=== PATIENT | male | born 1985 | race American Indian/Alaskan Native ===

== ENCOUNTER 2021-06-14 18:42 | Inpatient (IN) | payer SELFPAY ==
[2021-06-14] MEDS ORDERED: Ondansetron 4 MG/2 ML SDV IV PRN (19:01)
[2021-06-14] MEDS ORDERED: Sodium Chloride 0.9% 10 ML Syringe FLUSH PRN (19:01)
[2021-06-14] MEDS ORDERED: Polyethylene Glycol 3350 Powder 17 GM Packet PO PRN (19:01)
--- NOTE | 2021-06-14 19:07 | PCM.HP.2 ---
H&P History of Present Illness - General Date of Service: 06/14/21 Admit Problem/Dx: Admission Diagnosis/Problem Admission Diagnosis/Problem Cellulitis Source of Information: Patient, Provider History Limitations: Reports: No Limitations - History of Present Illness Initial Comments - Free Text/Narative: Mr. Barbosa is a 35-year-old gentleman who was admitted as a direct admission from the hospital emergency department in [place], for management of cellulitis and positive blood cultures. He injured the dorsal aspect of his left hand last week. Within a few days noted erythema and swelling of the dorsal aspect of his hand and forearm. He was seen and evaluated in the [place] emergency department yesterday. Blood cultures were obtained and he was given a dose of IV vancomycin. 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 No beds were available for transfer for hospitalization so he was discharged home and instructed to return back to the emergency department this morning. By that time blood cultures were positive, growing gram-positive cocci. He was given another dose of vancomycin and transferred here for further hospitalization and management. He has experienced fever and chills, appetite is diminished. - Related Data Allergies/Adverse Reactions: Allergies Allergy/AdvReac Type Severity Reaction Status Date / Time bee venom protein (honey bee) Allergy Cannot Verified 06/14/21 19:12 Remember sulfamethoxazole Allergy Cannot Verified 06/14/21 19:12 [From Bactrim] Remember trimethoprim [From Bactrim] Allergy Cannot Verified 06/14/21 19:12 Remember Home Medications: Home Meds Ibuprofen 600 mg PO Q6H PRN 06/14/21 [History] H&P Review of Systems - Review of Systems: Review Of Systems: See Below General: Reports: Fever, Chills, Malaise, Weakness, Decreased Appetite HEENT: Reports: No Symptoms Pulmonary: Reports: No Symptoms Cardiovascular: Reports: No Symptoms Gastrointestinal: Reports: No Symptoms Genitourinary: Reports: No Symptoms Musculoskeletal: Reports: No Symptoms Skin: Reports: Erythema (Erythema and induration of the dorsal aspect left hand and forearm) Psychiatric: Reports: No Symptoms Neurological: Reports: No Symptoms Hematologic/Lymphatic: Reports: No Symptoms Immunologic: Reports: No Symptoms Exam - Exam Exam: See Below - Exam General: Alert, Oriented, Cooperative, Mild Distress HEENT: Conjunctiva Clear, Hearing Intact, Mucosa Moist & [place], Normal Nasal Septum, Posterior Pharynx Clear, Pupils Equal Neck: Supple, Trachea Midline Lungs: Clear to Auscultation, Normal Respiratory Effort Cardiovascular: Regular Rate, Regular Rhythm, Normal S1, Normal S2. No: Systolic Murmur, Diastolic Murmur GI/Abdominal Exam: Soft, Non-Tender, No Organomegaly, No Distention Extremities: Non-Tender, No Pedal Edema Skin: Other (Erythema and induration left dorsal hand and forearm) Neurological: Cranial Nerves Intact, Strength Equal Bilateral, Normal Speech, Normal Tone, Sensation Intact. No: Focal Deficit Neuro Extensive - Mental Status: Alert, Oriented x3, Normal Mood/Affect, Normal Cognition, Memory Intact *Q Meaningful Use (ADM) - VTE *Q VTE Mechanical Contraindications *Q: Further Opinion Sought VTE Pharmacological Contraindications *Q: Not Candidate LT Anticoag - VTE Risk Assess *Q Each Risk Factor Represents 1 Point: Obesity ( BMI > 25 kg/m2) Total Score 1 Point Risk Factors: 1 Each Risk Factor Represents 2 Points: None Total Score 2 Point Risk Factors: 0 Each Risk Factor Represents 3 Points: None Total Score 3 Point Risk Factors: 0 Each Risk Factor Represents 5 Points: None Total Score 5 Point Risk Factors: 0 Venous Thromboembolism Risk Factor Score *Q: 1 Problem List Initiated/Reviewed/Updated: Yes Orders Last 24hrs: Active Orders 24 hr Category Date Time Status Patient Status [ADT] Routine ADT 06/14/21 19:01 Ordered Ambulate [RC] QID Care 06/14/21 19:01 Ordered Height and Weight [RC] DAILY Care 06/14/21 19:01 Ordered Intake and Output [RC] QSHIFT Care 06/14/21 19:01 Ordered Notify Provider Vital Signs [RC] ASDIRECTED Care 06/14/21 19:01 Ordered Oxygen Therapy [RC] PRN Care 06/14/21 19:01 Ordered Up to Chair [RC] QID Care 06/14/21 19:01 Ordered VTE/DVT Education [RC] Per Unit Routine Care 06/14/21 19:01 Ordered Vital Signs [RC] Q4H Care 06/14/21 19:01 Ordered Regular Diet [DIET] Diet 06/14/21 Dinner Ordered BASIC METABOLIC PANEL,BMP [CHEM] AM Lab 06/15/21 05:11 Ordered CBC WITH AUTO DIFF [HEME] AM Lab 06/15/21 05:11 Ordered CULTURE BLOOD [BC] AM Lab 06/15/21 05:11 Ordered CULTURE BLOOD [BC] AM Lab 06/15/21 05:11 Ordered Acetaminophen [TylenoL] Med 06/14/21 19:01 Ordered 650 mg PO Q4H PRN Ondansetron [Zofran] Med 06/14/21 19:01 Ordered 4 mg IV Q4H PRN Sodium Chloride 0.9% [Saline Flush] Med 06/14/21 19:01 Ordered 10 ml FLUSH ASDIRECTED PRN Vancomycin Med 06/14/21 20:00 Ordered 1 gm IV .PHARMACY TO DOSE polyethylene glycoL 3350 [MiraLAX] Med 06/14/21 19:01 Ordered 17 gm PO DAILY PRN Blood Culture x2 Reflex Set [OM.PC] AM Oth 06/15/21 05:11 Ordered Saline Lock Insert [OM.PC] Routine Oth 06/14/21 19:01 Ordered VTE Mechanical Contraindications [AST] Per Unit Routine Oth 06/14/21 19:01 Ordered VTE Pharmacological Contraindications [AST] Per Unit Oth 06/14/21 19:01 Ordered Routine Resuscitation Status Routine Resus Stat 06/14/21 19:01 Ordered Assessment/Plan Comment:: ASSESSMENT AND PLAN CELLULITIS DORSAL ASPECT LEFT HAND AND FOREARM-he experienced a skin break lesion on the dorsal aspect of his hand while working on a car last week. Within a few days developed significant erythema and swelling involving the dorsal aspect of the hand and extending into the forearm. Seen and evaluated yesterday at the [place] emergency department and started on vancomycin. He has a history of previous MRSA infection. Today blood cultures were found to be positive for gram-positive cocci, final ID and sensitivities are pending. He received his second dose of IV vancomycin this morning at the [place] emergency department. Transferred here for further evaluation and management. -Saline lock IV -IV vancomycin, pharmacy to dose -Follow-up blood cultures from [place] -Repeat blood cultures in a.m. -MRI of the left hand and forearm in a.m. MAINTENANCE ISSUES -DVT prophylaxis; not required -GI prophylaxis; not indicated -King catheter; not indicated -Nutrition; regular diet -Nicotine dependence; not required CODE STATUS-FULL CODE ADMISSION STATUS-patient will be admitted to inpatient status, expect at least a 2 night hospital stay for evaluation and management of problems as outlined above. At the time of this admission I do not reasonably expected evaluation and management of this problem will require more than a 96 hour hospital stay. DISPOSITION-anticipate discharge to home after the hospital stay. PRIMARY CARE PROVIDER-he receives primary care at the [facility] - Mortality Measure Prognosis:: Good
[2021-06-14] MEDS: Acetaminophen 325 MG Tab PO PRN (19:21)
[2021-06-14] MEDS ORDERED: Vancomycin 1 GM SDV IV SCH (20:00)
[2021-06-14] MEDS ORDERED: Vancomycin 2 GM in Sodium Chloride 0.9% 500 ML IV SCH (20:00)
[2021-06-14] MEDS: traMADol 50 MG Tab PO PRN (23:44)
[2021-06-15] MEDS: traMADol 50 MG Tab PO PRN ×3 (05:51→20:17)
[2021-06-15] MEDS: Acetaminophen 325 MG Tab PO PRN ×3 (05:54→20:17)
[2021-06-15] MEDS ORDERED: Vancomycin 2 GM in Sodium Chloride 0.9% 500 ML IV SCH ×2 (09:00→21:00)
[2021-06-15] MEDS ORDERED: Gadoteridol 279.3 MG/ML 20 ML SDV IV SCH (10:00)
[2021-06-15] MEDS ORDERED: Potassium Chloride 20 MEQ Tab.ER PO ONE (10:00)
--- NOTE | 2021-06-15 10:48 | CRLMR ---
For Patients: As a result of the Cures Act, medical imaging exams and procedure reports are released immediately into your electronic medical record. You may view this report before your referring provider. If you have questions, please contact your health care provider. HISTORY: Cellulitis of the left wrist. Swelling and redness. TECHNIQUE: Noncontrast and contrast enhanced MRI of the left wrist. COMPARISON: No prior. FINDINGS: Soft tissues: There is dorsal soft tissue signal abnormality and enhancement involving the wrist compatible with cellulitis. There is no peripherally enhancing dorsal subcutaneous fluid collection to suggest a well-formed abscess. No soft tissue mass. - Tendons: No excessive tendon sheath fluid to suggest tenosynovitis. No tendon tear or significant tendinosis. - Joint spaces: No abnormal joint effusions. No erosive change. No evidence of septic arthritis. - Osseous structures: No osteomyelitis. No fracture. Ulnar minus variance is noted. IMPRESSION: 1. Dorsal wrist cellulitis. 2. No peripherally enhancing fluid collection to suggest a well-formed abscess. 3. No septic arthritis or osteomyelitis. 4. No abnormal tendon sheath fluid to suggest tenosynovitis. Dictated by Jonnathan William MD @ 06/15/2021 10:46:24 AM Dictated by: Jonnathan William MD @ 06/15/2021 10:46:28 (Electronically Signed)
--- NOTE | 2021-06-15 14:16 | PCM.PN ---
- General Info Date of Service: 06/15/21 Subjective Update: No acute events overnight. Patient reports a large improvement in pain and swelling of the left wrist and forearm area. He did have a fever last night but none this morning. He is able to bend his wrist a little bit today. Appetite is good. MRI this morning showed evidence for cellulitis but no deep infection or tenosynovitis. Cultures from [place] are growing group A strep. Functional Status: Reports: Pain Controlled - Review of Systems General: Reports: Fever - Patient Data Vitals - Most Recent: Last Vital Signs Temp 37.2 C 06/15/21 11:15 Pulse 74 06/15/21 11:15 Resp 18 06/15/21 11:15 BP 136/73 06/15/21 11:15 Pulse Ox 94 L 06/15/21 11:15 Weight - Most Recent: 162.386 kg I&O - Last 24 Hours: Intake & Output 06/14/21 06/15/21 06/15/21 22:59 06:59 14:59 Intake Total 075 393 0916 Output Total 800 Balance -127 296 9195 Lab Results Last 24 Hours: Laboratory Results - last 24 hr 06/15/21 06/15/21 Range/Units 05:10 05:10 WBC 10.0 (4.5-11.0) K/uL RBC 4.29 L (4.30-5.90) M/uL Hgb 10.6 L (12.0-15.0) g/dL Hct 34.4 L (40.0-54.0) % MCV 80 (80-98) fL MCH 25 L (27-31) pg MCHC 31 L (32-36) % Plt Count 222 (150-400) K/uL Neut % (Auto) 62.7 (36-66) % Lymph % (Auto) 22.7 L (24-44) % [place] % (Auto) 12.1 H (2-6) % Eos % (Auto) 2.2 (2-4) % Baso % (Auto) 0.3 (0-1) % Sodium 135 L (140-148) mmol/L Potassium 3.5 L (3.6-5.2) mmol/L Chloride 100 (100-108) mmol/L Carbon Dioxide 29 (21-32) mmol/L Anion Gap 9.5 (5.0-14.0) mmol/L BUN 9 (7-18) mg/dL Creatinine 0.8 (0.8-1.3) mg/dL Est Cr Clr Drug Dosing 158.23 mL/min Estimated GFR (MDRD) > 60 (>60) Glucose 96 (74-106) mg/dL Calcium 8.2 L (8.5-10.1) mg/dL Med Orders - Current: Current Medications Acetaminophen (Acetaminophen 325 Mg Tab) 650 mg PO Q4H PRN PRN Reason: Pain (Mild 1-3)/fever Last Admin: 06/15/21 11:19 Dose: 650 mg Documented by: Influenza Virus Vaccine (Flu Vacc [id number](6mos Up)/Pf 60 Mcg/0.5 Ml Syringe) 60 mcg IM .ONCE ONE Stop: 06/17/21 10:01 Ondansetron HCl (Ondansetron 4 Mg/2 Ml Sdv) 4 mg IV Q4H PRN PRN Reason: Nausea/Vomiting Last Admin: 06/15/21 05:54 Dose: 4 mg Documented by: Pneumococcal Polyvalent Vaccine (Pneumococcal Polyvalent-23 Vaccine 0.5 Ml Sdv) 0.5 ml IM .ONCE ONE Stop: 06/17/21 10:01 Polyethylene Glycol (Polyethylene Glycol 3350 Powder 17 Gm Packet) 17 gm PO DAILY PRN PRN Reason: Constipation Sodium Chloride (Sodium Chloride 0.9% 10 Ml Syringe) 10 ml FLUSH ASDIRECTED PRN PRN Reason: Keep Vein Open Tramadol HCl (Tramadol 50 Mg Tab) 50 mg PO Q4H PRN PRN Reason: Pain Last Admin: 06/15/21 11:19 Dose: 50 mg Documented by: Discontinued Medications Gadoteridol (Gadoteridol 279.3 Mg/Ml 20 Ml Sdv) 20 ml IV . DIRECTED [facility] Stop: 06/15/21 10:01 Last Admin: 06/15/21 10:13 Dose: 20 ml Documented by: Vancomycin HCl 2 gm/ Sodium (Chloride) 500 mls @ 250 mls/hr IV Q12H [facility] Last Admin: 06/14/21 20:44 Dose: 250 mls/hr Documented by: Vancomycin HCl 2 gm/ Sodium (Chloride) 500 mls @ 250 mls/hr IV Q12H [facility] Stop: 06/15/21 14:00 Last Admin: 06/15/21 11:10 Dose: 250 mls/hr Documented by: Vancomycin HCl 1.75 gm/ Sodium (Chloride) 250 mls @ 166.667 mls/hr IV Q8H [facility] Potassium Chloride (Potassium Chloride 20 Meq Tab.Er) 40 meq PO ONETIME ONE Stop: 06/15/21 10:01 Last Admin: 06/15/21 11:14 Dose: 40 meq Documented by: Vancomycin HCl (Vancomycin 1 Gm Sdv) 1 gm IV .PHARMACY TO DOSE [facility] Stop: 06/15/21 08:30 - Exam Quality Assessment: No: Supplemental Oxygen General: Alert, Oriented, Cooperative, No Acute Distress Lungs: Normal Respiratory Effort GI/Abdominal Exam: Soft, No Distention Extremities: No Pedal Edema, Increased Warmth (mild left wrist area ), Other (dorsum of left hand and left wrist with some swelling extending to the distal forearm. Pt reports swelling much better. still some induration around the wrist) Skin: Warm, Dry Psy/Mental Status: Alert, Normal Affect - Patient Data Lab Results Last 24 hrs: Laboratory Results - last 24 hr 06/15/21 06/15/21 Range/Units 05:10 05:10 WBC 10.0 (4.5-11.0) K/uL RBC 4.29 L (4.30-5.90) M/uL Hgb 10.6 L (12.0-15.0) g/dL Hct 34.4 L (40.0-54.0) % MCV 80 (80-98) fL MCH 25 L (27-31) pg MCHC 31 L (32-36) % Plt Count 222 (150-400) K/uL Neut % (Auto) 62.7 (36-66) % Lymph % (Auto) 22.7 L (24-44) % [place] % (Auto) 12.1 H (2-6) % Eos % (Auto) 2.2 (2-4) % Baso % (Auto) 0.3 (0-1) % Sodium 135 L (140-148) mmol/L Potassium 3.5 L (3.6-5.2) mmol/L Chloride 100 (100-108) mmol/L Carbon Dioxide 29 (21-32) mmol/L Anion Gap 9.5 (5.0-14.0) mmol/L BUN 9 (7-18) mg/dL Creatinine 0.8 (0.8-1.3) mg/dL Est Cr Clr Drug Dosing 158.23 mL/min Estimated GFR (MDRD) > 60 (>60) Glucose 96 (74-106) mg/dL Calcium 8.2 L (8.5-10.1) mg/dL Result Diagrams: 06/15/21 05:10 06/15/21 05:10 Sepsis Event Note - Evaluation Sepsis Screening Result: No Definite Risk - Focused Exam Vital Signs: Vital Signs Temp Pulse Resp BP Pulse Ox 06/15/21 11:15 37.2 C 74 18 136/73 94 L 06/15/21 07:21 36.8 C 60 16 128/57 L 93 L 06/15/21 02:53 37.7 C 69 16 118/53 L 95 - Problem List Review Problem List Initiated/Reviewed/Updated: Yes - My Orders Last 24 Hours: My Active Orders 06/15/21 15:00 cefTRIAXone [Rocephin] 1 gm Sodium Chloride 0.9% [Normal Saline AdvBag] 50 ml IV Q12H - Plan Plan:: ASSESSMENT AND PLAN - CELLULITIS OF DORSAL ASPECT LEFT HAND AND FOREARM-complicated by group A strep bacteremia. Clinically improving with current antibiotics. MRI did not show deeper infection or tenosynovitis. Blood cultures from [place] are growing group A strep. -Saline lock IV -IV ceftriaxone -Follow-up blood cultures from [place] -Follow-up repeat blood cultures MAINTENANCE ISSUES -DVT prophylaxis; not required -GI prophylaxis; not indicated -King catheter; not indicated -Nutrition; regular diet DISPOSITION-anticipate discharge to home after the hospital stay. PRIMARY CARE PROVIDER-he receives primary care at the [facility] Erlin Tejada MD
[2021-06-15] MEDS: cefTRIAXone 1 GM in Sodium Chloride 0.9% 50 ML IV SCH (15:15)
[2021-06-16] MEDS: Acetaminophen 325 MG Tab PO PRN (02:56)
[2021-06-16] MEDS: traMADol 50 MG Tab PO PRN ×2 (02:57→11:37)
[2021-06-16] MEDS: cefTRIAXone 1 GM in Sodium Chloride 0.9% 50 ML IV SCH (02:57)
[2021-06-16] MEDS ORDERED: Pneumococcal Polyvalent-23 Vaccine 0.5 ML SDV IM ONE ×2 (09:00→11:00)
--- NOTE | 2021-06-16 10:44 | PCM.DCSUM1 ---
Discharge Summary - Hospital Course Brief History: 35-year-old male with history of obesity who presented as a direct admission from [place] for management of left arm cellulitis complicated by gram-positive bacteremia. Diagnosis: Stroke: No - Discharge Data Discharge Date: 06/16/21 Discharge Disposition: Home, Self-Care 01 Condition: Good - Referral to Home Health Primary Care Physician: PCP None - Discharge Diagnosis/Problem(s) (1) Cellulitis of left arm SNOMED Code(s): 153522748 ICD Code: L03.114 - CELLULITIS OF LEFT UPPER LIMB Status: Acute (2) Group B streptococcal infection SNOMED Code(s): 968333436 ICD Code: A49.1 - STREPTOCOCCAL INFECTION, UNSPECIFIED SITE Status: Acute Problem Details: group a strep bacteremia from left arm cellulitis - Patient Summary/Data Hospital Course: Virgil presented initially to [facility] with left wrist and arm pain, swelling and redness. He received antibiotics there and blood cultures were obtained. They called him back the next day because the blood cultures were positive. Recommendation was for hospital admission and IV antibiotics but they did not have beds available. He was sent here for direct admission. Vancomycin was continued following admission. His blood cultures returned the next day growing group A strep. Once the group A strep was identified his antibiotics were transitioned to ceftriaxone. During the course of the hospital stay we saw significant improvement in the redness, warmth and swelling of the left wrist. He has had increased ability to move both the wrist joint. His pain has been improving steadily. We did get an MRI of the wrist and forearm which did not show any evidence for deeper infection such as tenosynovitis. There is no evidence for abscess formation under the skin. At the time of discharge she has minimal remaining swelling of the distal left forearm on the dorsal aspect. His redness has essentially resolved. There is only a small area of warmth in the area of the redness. Range of motion at the wrist has improved dramatically. He feels well enough to go home. The plan is for him to be on Augmentin for 10 more days to complete a total of 14 days of antibiotics for this skin and soft tissue infection with group A strep. Follow-up blood cultures obtained during the hospital stay are negative at the time of discharge. - Patient Instructions Diet: Regular Diet as Tolerated Activity: As Tolerated Driving: May Drive Today Showering/Bathing: May Shower Notify Provider of: Fever, Increased Pain Other/Special Instructions: 1. You were in the hospital for management of left arm cellulitis caused by a group B strep bacteria. The infection was severe enough that you had bacteria in your bloodstream. Repeat blood cultures have shown that this infection has cleared from your bloodstream. The area of cellulitis (skin infection) has improved significantly. I recommend ongoing antibiotic therapy with Augmentin. Please take 1 tab twice daily (morning and bedtime) for 10 more days. Your first dose outside of the hospital will be due tonight. Please seek immediate medical attention if you notice increasing redness, warmth or swelling of the left wrist or if you have fever greater than 101 or shaking chills. 2. Please follow-up with primary care in 3 to 5 days. - Discharge Plan *PRESCRIPTION DRUG MONITORING PROGRAM REVIEWED*: Not Applicable *COPY OF PRESCRIPTION DRUG MONITORING REPORT IN PATIENT JIA: Not Applicable Prescriptions/Med Rec: Amoxicillin/Clavulanate K [Augmentin 875-125 MG] 1 tab PO Q12HR #20 tablet traMADol [Ultram] 50 mg PO Q4H PRN #5 tablet PRN Reason: Pain Home Medications: Home Meds Ibuprofen 600 mg PO Q6H PRN 06/14/21 [History] Amoxicillin/Clavulanate K [Augmentin 875-125 MG] 1 tab PO Q12HR #20 tablet 06/16/21 [Rx] traMADol [Ultram] 50 mg PO Q4H PRN #5 tablet 06/16/21 [Rx] Oxygen Therapy Mode: Room Air Patient Handouts: Fall Prevention in the Home, Adult, [id number], Amoxicil marilynn; Clavulanic Acid Tablets, Cellulitis, Adult, [id number] Referrals: Maddie Conley NP [Consulting Physician] - 06/22/21 2:00 pm (Please arrive 15 minutes early to register for your appointment.) - Discharge Summary/Plan Comment DC Time >30 min.: No Total # of Minutes for Discharge Time: 20 - Patient Data Vitals - Most Recent: Last Vital Signs Temp 36.1 C 06/16/21 08:07 Pulse 68 06/16/21 08:07 Resp 14 06/16/21 08:07 BP 122/73 06/16/21 08:07 Pulse Ox 96 06/16/21 08:07 Weight - Most Recent: 162.386 kg I&O - Last 24 hours: Intake & Output 06/15/21 06/16/21 06/16/21 22:59 06:59 14:59 Intake Total 1635 50 Balance 1635 50 DINA Results - Last 24 hrs: Microbiology 06/15/21 05:10 Aerobic Blood Culture - Preliminary Blood - Arm, Right NO GROWTH AFTER 1 DAY Anaerobic Blood Culture - Preliminary NO GROWTH AFTER 1 DAY 06/15/21 05:15 Aerobic Blood Culture - Preliminary Blood - Arm, Right NO GROWTH AFTER 1 DAY Anaerobic Blood Culture - Preliminary NO GROWTH AFTER 1 DAY Med Orders - Current: Current Medications Acetaminophen (Acetaminophen 325 Mg Tab) 650 mg PO Q4H PRN PRN Reason: Pain (Mild 1-3)/fever Last Admin: 06/16/21 02:56 Dose: 650 mg Documented by: Amoxicillin/Clavulanate Potassium (Amoxicillin/Clavulanate K 875-125 Mg Tab) 1 tab PO Q12HR [facility] Stop: 06/16/21 10:46 Ceftriaxone Sodium 1 gm/ (Sodium Chloride) 50 mls @ 100 mls/hr IV Q12H [facility] Last Admin: 06/16/21 02:57 Dose: 100 mls/hr Documented by: Influenza Virus Vaccine (Flu Vacc [id number](6mos Up)/Pf 60 Mcg/0.5 Ml Syringe) 60 mcg IM .ONCE ONE Stop: 06/17/21 10:01 Ondansetron HCl (Ondansetron 4 Mg/2 Ml Sdv) 4 mg IV Q4H PRN PRN Reason: Nausea/Vomiting Last Admin: 06/15/21 05:54 Dose: 4 mg Documented by: Pneumococcal Polyvalent Vaccine (Pneumococcal Polyvalent-23 Vaccine 0.5 Ml Sdv) 0.5 ml IM .ONCE ONE Stop: 06/17/21 10:01 Polyethylene Glycol (Polyethylene Glycol 3350 Powder 17 Gm Packet) 17 gm PO DAILY PRN PRN Reason: Constipation Sodium Chloride (Sodium Chloride 0.9% 10 Ml Syringe) 10 ml FLUSH ASDIRECTED PRN PRN Reason: Keep Vein Open Tramadol HCl (Tramadol 50 Mg Tab) 50 mg PO Q4H PRN PRN Reason: Pain Last Admin: 06/16/21 02:57 Dose: 50 mg Documented by: Discontinued Medications Gadoteridol (Gadoteridol 279.3 Mg/Ml 20 Ml Sdv) 20 ml IV . DIRECTED [facility] Stop: 06/15/21 10:01 Last Admin: 06/15/21 10:13 Dose: 20 ml Documented by: Vancomycin HCl 2 gm/ Sodium (Chloride) 500 mls @ 250 mls/hr IV Q12H [facility] Last Admin: 06/14/21 20:44 Dose: 250 mls/hr Documented by: Vancomycin HCl 2 gm/ Sodium (Chloride) 500 mls @ 250 mls/hr IV Q12H [facility] Stop: 06/15/21 14:00 Last Admin: 06/15/21 11:10 Dose: 250 mls/hr Documented by: Vancomycin HCl 1.75 gm/ Sodium (Chloride) 250 mls @ 166.667 mls/hr IV Q8H [facility] Potassium Chloride (Potassium Chloride 20 Meq Tab.Er) 40 meq PO ONETIME ONE Stop: 06/15/21 10:01 Last Admin: 06/15/21 11:14 Dose: 40 meq Documented by: Vancomycin HCl (Vancomycin 1 Gm Sdv) 1 gm IV .PHARMACY TO DOSE [facility] Stop: 06/15/21 08:30 *Q Meaningful Use (DIS) - VTE *Q VTE Mechanical Contraindications *Q: Further Opinion Sought VTE Pharmacological Contraindications *Q: Not Candidate LT Anticoag
[2021-06-16] MEDS ORDERED: Amoxicillin/Clavulanate K 875-125 MG Tab PO SCH (10:45)
[2021-06-17] MEDS ORDERED: Pneumococcal Polyvalent-23 Vaccine 0.5 ML SDV IM ONE (10:00)
== END 2021-06-16 11:55 | disposition home or self-care (01) | DRG 603 ==
LOC: JP.MS 18:42
PROVIDERS: ADMIT Hospitalist; ATTEND Internal Medicine
DX: L03.114 Cellulitis of left upper limb (principal); Z86.14 Personal history of Methicillin resistant Staphylococcus aureus infection; Z88.2 Allergy status to sulfonamides; Z88.1 Allergy status to other antibiotic agents; B96.89 Other specified bacterial agents as the cause of diseases classified elsewhere
CPT/HCPCS: 36415; 73219-LT; 80048; 85025; 87040; 90686; 90732; 99221; 99232; 99238; A9270-GY; A9579; G0008; G0009; J0696; J2405; J3370; J7040